=== PATIENT | male | born 1955 | race Asian ===

== ENCOUNTER 2018-09-24 07:59 | Day surgery (SDC) | payer OTHER ==
[~2018-09-24] VITALS: Ht 167.6 cm; Wt 58.0 kg
[2018-09-24 08:33] VITALS: BP 106/62
[2018-09-24 13:03] VITALS: BP 117/76
== END 2018-09-24 11:45 | disposition home or self-care (01) ==
LOC: GI 07:59 → OR 13:00 → GI 13:00 → OR 14:15 → GI 14:15
DX: K63.5 Polyp of colon (principal); K29.50 Unspecified chronic gastritis without bleeding; K31.7 Polyp of stomach and duodenum; B18.2 Chronic viral hepatitis C; F17.210 Nicotine dependence, cigarettes, uncomplicated; Z79.2 Long term (current) use of antibiotics; Z91.040 Latex allergy status
CPT/HCPCS: 43235; 45378; 99153; J1200; J1610; J2250; J2310; J3010; J3490